=== PATIENT | male | born 1980 | race Caucasian/White ===

== ENCOUNTER 2016-05-13 20:39 | Emergency (ER) | payer OTHER ==
[~2016-05-13] VITALS: Ht 172.7 cm; Wt 72.6 kg
[2016-05-13 21:00] VITALS: BP 130/86
[2016-05-14] MEDS ORDERED: TETRACAINE HCL 0.5% OPTH(EYE) SOLN 4ML LEFTEYE ONE (00:45)
[2016-05-14] MEDS ORDERED: FLUORESCEIN SOD 1 MG TEST STRIP LEFTEYE ONE (00:45)
[2016-05-14] MEDS ORDERED: GENTAMICIN OPTH sol 0.3% 5ml LEFTEYE ONE (00:45)
== END 2016-05-14 01:19 | disposition home or self-care (01) ==
LOC: ER 20:51
DX: T15.92XA Foreign body on external eye, part unspecified, left eye, initial encounter (principal); W22.8XXA Striking against or struck by other objects, initial encounter; Y93.89 Activity, other specified; Y99.8 Other external cause status; Y92.89 Other specified places as the place of occurrence of the external cause

== ENCOUNTER 2023-09-01 06:05 | Day surgery (SDC) | payer OTHER ==
[2023-08-26 11:01] LABS: Urine Bacteria None Seen /hpf (None Seen)
[2023-08-26 11:16] LABS: Urine Blood Negative /uL (Negative); Urine Budding Yeast OCCASIONAL /hpf (None Seen); Urine Clarity Clear (Clear); Urine Color Light-Yellow (Yellow); Urine Protein, UAD Negative (Negative); Urine Specific Gravity 1.013 (1.001-1.035); Urine Urobilinogen Normal (Negative); Urine WBC <1 /hpf (0 - 3); Urine pH 6.5 (5.0-9.0)
[2023-08-26 11:18] LABS: Basophils # (auto) 0 10 ^3/uL (0-0.2); Basophils % (auto) 0.5 % (0.0-2.0); Eosinophils # (auto) 0.2 10 ^3/uL (0-0.8); Eosinophils % (auto) 3.4 % (0.0-7.0); Hematocrit 49.6 % (41.0-53.0); Hemoglobin 17.6 g/dL (13.5-17.5); Lymphocytes # (auto) 1.9 10 ^3/uL (0.4-5.4); Lymphocytes % (auto) 30.3 % (10.0-50.0); Mean Corpuscular Hemoglobin 32.5 pg (28.0-32.0); Mean Corpuscular Hgb Conc. 35.5 g/dL (32.0-36.0); Mean Corpuscular Volume 91.5 fL (80.0-100.0); Monocytes # (auto) 0.7 10 ^3/uL (0-1.3); Monocytes % (auto) 10.8 % (0.0-12.0); Neutrophils # (auto) 3.4 10 ^3/uL (1.6-8.6); Nucleated Red Blood Cells % 0.7 %; Red Blood Cells 5.42 10^6/uL (4.5-5.90); Red Cell Distribution Width 13.6 % (11.8-14.3); White Blood Cell 6.2 10^3/uL (4.4-10.8)
[2023-08-26 11:30] LABS: INR 1.03 (0.9-1.15); Partial Thromboplastin Time 28.2 SEC (24.5-34.5); Prothrombin Time 10.9 sec (9.3-11.8)
[2023-08-26 11:36] LABS: Alanine Aminotransferase 28 U/L (7-40); Albumin 4.7 g/dL (3.2-4.8); Alkaline Phosphatase 71 U/L (46-116); Anion Gap 1 (5-15); Aspartate Aminotransferase 12 U/L (13-40); BUN/Creatinine Ratio 11.5 (10.0-20.0); Bilirubin, Total 0.9 mg/dL (0.2-1.0); Blood Urea Nitrogen 13 mg/dL (9-23); Calcium 10.1 mg/dL (8.5-10.1); Carbon Dioxide 31 mmol/L (20-30); Chloride 105 mmol/L (98-107); Glucose 95 mg/dL (74-106); Sodium 137 mmol/L (136-145); Total Protein 7.3 g/dL (5.7-8.2)
[2023-08-26 14:01] LABS: Potassium 5.7 mmol/L (3.5-5.1)
[2023-08-29 11:03] LABS: Alanine Aminotransferase 38 U/L (7-40); Alkaline Phosphatase 69 U/L (46-116); Anion Gap 6 (5-15); Aspartate Aminotransferase 17 U/L (13-40); BUN/Creatinine Ratio 12.6 (10.0-20.0); Bilirubin, Total 0.8 mg/dL (0.2-1.0); Blood Urea Nitrogen 13 mg/dL (9-23); Calcium 9.6 mg/dL (8.5-10.1); Carbon Dioxide 26 mmol/L (20-30); Chloride 105 mmol/L (98-107); Glucose 93 mg/dL (74-106); Sodium 137 mmol/L (136-145); Total Protein 6.9 g/dL (5.7-8.2)
[2023-08-29 11:28] LABS: Albumin 4.6 g/dL (3.2-4.8)
[~2023-09-01] VITALS: Ht 172.7 cm; Wt 77.6 kg
[2023-09-01] MEDS ORDERED: ceFAZolin 2 GM/D5W50ml 50 ML IV ONE (06:38)
[2023-09-01] MEDS ORDERED: EPINEPHrine HCL 1 MG/1 ML AMP ONE (07:11)
[2023-09-01] MEDS ORDERED: BUPIVACAINE HCL 50 ML ONE (07:11)
[2023-09-01] MEDS ORDERED: PROPOFOL 10 MG/ML 20 ML IV ONE (07:39)
[2023-09-01] MEDS ORDERED: LIDOCAINE 1% INJ PF 5ML AMP ONE (07:39)
[2023-09-01] MEDS ORDERED: ONDANSETRON HCL 4 MG/2 ML VIAL ONE (07:39)
[2023-09-01] MEDS ORDERED: fentaNYL CITRATE 5 ML ONE (07:43)
[2023-09-01] MEDS ORDERED: MIDAZOLAM HCL 2MG/2ML 2ml VIAL (1mg/ml) ONE (07:43)
[2023-09-01] MEDS: BUPIVACAINE 0.5% MPF INJ 30ML SDV IJ ONE (08:30)
[2023-09-01] MEDS ORDERED: ONDANSETRON HCL 4 MG/2 ML VIAL IV ONE (08:45)
[2023-09-01] MEDS ORDERED: HYDROmorphone HCL 2 MG/ML VL/or syr IV PRN ×2 (08:45)
[2023-09-01 08:59] VITALS: PULSE 62; RESP 9; O2SAT 100
[2023-09-01 09:00] VITALS: TEMP 97.5
[2023-09-01 09:30] VITALS: BP 124/82; PULSE 49; RESP 11
== END 2023-09-01 09:45 | disposition home or self-care (01) ==
LOC: SUR 06:05
PROVIDERS: ATTEND Orthopaedic Surgery
DX: S83.241A Other tear of medial meniscus, current injury, right knee, initial encounter (principal); S83.511A Sprain of anterior cruciate ligament of right knee, initial encounter; M25.861 Other specified joint disorders, right knee; M23.51 Chronic instability of knee, right knee; G89.29 Other chronic pain; Z79.899 Other long term (current) drug therapy; Z98.890 Other specified postprocedural states; X58.XXXA Exposure to other specified factors, initial encounter; Y93.89 Activity, other specified; Y92.89 Other specified places as the place of occurrence of the external cause; Y99.8 Other external cause status
CPT/HCPCS: 29882; 29888; 36415; 80053; 81001; 85025; 85610; 85730; C1713; J0171; J0690; J2250; J2405; J2704; J3010; J3490

== ENCOUNTER 2025-02-14 06:05 | Day surgery (SDC) | payer BC ==
[~2025-02-14] VITALS: Ht 172.7 cm; Wt 73.5 kg
[~2025-02-14 06:05] MED LIST: IBUP100S11 GT
[2025-02-14] MEDS ORDERED: ceFAZolin 2 GM/D5W50ml 50 ML IV ONE (06:35)
[2025-02-14] MEDS ORDERED: BUPIVACAINE HCL 50 ML ONE (06:43)
[2025-02-14] MEDS ORDERED: BUPIVACAINE 0.25% INJ 50ML VIAL ONE ×2 (06:43→07:06)
[2025-02-14] MEDS ORDERED: PROPOFOL 10 MG/ML 20 ML IV ONE (06:50)
[2025-02-14] MEDS ORDERED: KETOROLAC TROMETH 30 MG/ML 1ML VIAL ONE (06:50)
[2025-02-14] MEDS ORDERED: GLYCOPYRROLATE 0.2 MG/ML 1ML VIAL ONE (06:50)
[2025-02-14] MEDS ORDERED: LIDOCAINE 2% (LOCAL ANESTH.) PF 5ml SDV ONE (06:50)
[2025-02-14] MEDS ORDERED: ONDANSETRON HCL 4 MG/2 ML VIAL ONE (06:50)
[2025-02-14] MEDS ORDERED: fentaNYL CITRATE 100 MCG/2 ML VL ONE (06:51)
[2025-02-14] MEDS ORDERED: KETAMINE 50mg/ML 1ml syringe ONE (06:51)
[2025-02-14] MEDS: ACETAMINOPHEN IV 1000 MG/100ML (10MG/ML) IV ONE (07:00)
[2025-02-14] MEDS: GABAPENTIN 300 MG CAP PO ONE (07:00)
[2025-02-14] MEDS: CELECOXIB 100 MG CAP PO ONE (07:00)
[2025-02-14] MEDS ORDERED: MINERAL OIL TOPICAL 10ml TOP ONE (07:02)
[2025-02-14] MEDS ORDERED: LIDOCAINE W/ EPINEPHRINE 1% 20ML VIAL ONE (07:07)
[2025-02-14] MEDS ORDERED: ROPIVACAINE 0.5% (5MG/ML) 20ML AMPULE IJ ONE (07:16)
[2025-02-14 08:05] VITALS: PULSE 55; RESP 12; O2SAT 99
--- NOTE | 2025-02-14 08:10 | DVHOP2 ---
Discharge Orders Discharge Orders DISCHARGE WHEN CRITERIA MET DISCHARGE WHEN CRITERIA MET. Operative Rep- Outpatient Operative Report PRE-OP DIAGNOSIS: Right knee medial meniscus tear Right knee synovitis POST-OP DIAGNOSIS: Same [place] protocol followed: Yes ESTIMATED BLOOD LOSS: Minimal PROCEDURE: Right knee arthroscopic medial meniscus repair Right knee arthroscopic partial lateral meniscectomy Right knee arthroscopic microfracture lateral femoral condyle Right knee aggressive synovectomy intermittent 2 component chondroplasty SURGEON/FLORICULTURE TEACHER: Pamela PATEL ANESTHESIA: SWING SAW OPERATOR INFORMED CONSENT: Informed Consent: Discussed all inherent risks, complications, and alternatives treatments with the patient. Patient has agreed to proceed with the procedure. I have reviewed all pre-operative assessments including Labs, EKGs, and radiographic images that has been performed. Patient is an appropriate candidate for the outpatient surgical center procedure. The patient is educated on the risks and benefits of surgical and nonsurgical treatment of the right lower extremity the patient understood the risks and benefits of surgical nonsurgical treatment of the right lower extremity the patient understood the risks and benefits of surgical and nonsurgical treatment of the right lower extremity based on these parameters the patient understood the risks and benefits and opted for surgical treatment The patient was seen in the preoperative holding of the right lower extremity was marked the patient was brought to operative suite general anesthesia was then induced time-out was hospital protocol the right lower extremity was prepped and draped in the standard fashion Ancef was given for infection prophylaxis the anteromedial anterolateral portal were then made the patellofemoral joint was then visualized there were no loose bodies noted in the medial and lateral gutter the medial femoral condyle medial tibial plateau had grade 1 softening of the medial tibial plateau plateau had grade 1 softening medial femoral condyle grade 1 softening the patient had a complex tear of the posterior horn of the medial meniscus with a rasp fracture followed by partial meniscectomy followed by 2-0 all inside jugular 6 sutures were medial meniscus repair to stabilize the medial meniscus to prevent a medial meniscus resection with the risk of the having a subtotal meniscectomy based on the tear of the pattern therefore the repair of the meniscus based on the red-white zone once I was then done on 9 microfracture of the endocrinologic and lateral femoral condyle 3 microfracture picks were Medicine, bleeding once I was then done on the ACL PCL were grossly intact there were no laxity noted on the ACL once it was then done the lateral femoral condyle lateral tibial plateau cartilage was intact the patient had a radial tear of the lateral meniscus with partial lateral meniscectomy was done with a an RF Wand and a shaver once I was then completed the portal sites were then closed with 2-0 Monocryl sterile dressing was then applied the patient will be weight-bearing as tolerated in extension only nonweightbearing from 0-90 degrees PT OT out of bed daily follow up in 2 w eeks' time the portal sites were closed with 2-0 Monocryl MONSE HARTMANN MD Feb 14, 2025 08:10
[2025-02-14] MEDS ORDERED: fentaNYL CITRATE 100 MCG/2 ML VL IV PRN (08:15)
[2025-02-14] MEDS ORDERED: FLUMAZENIL 0.1 MG/ML INJ 10ML MDV IV PRN (08:15)
[2025-02-14] MEDS ORDERED: hydrALAZINE HCL 20 MG/ML VL IV PRN (08:15)
[2025-02-14] MEDS ORDERED: NALOXONE HCL 0.4 MG/ML VIAL IV PRN (08:15)
[2025-02-14] MEDS ORDERED: ONDANSETRON HCL 4 MG/2 ML VIAL IV PRN (08:15)
[2025-02-14] MEDS: HYDROmorphone HCL 2 MG/ML VL/or syr IV PRN (08:27)
[2025-02-14 09:00] VITALS: BP 122/87; PULSE 54; RESP 12; O2SAT 96
== END 2025-02-14 09:04 | disposition home or self-care (01) ==
LOC: SUR 06:05
PROVIDERS: ATTEND Orthopaedic Surgery
DX: S83.231A Complex tear of medial meniscus, current injury, right knee, initial encounter (principal); S83.281A Other tear of lateral meniscus, current injury, right knee, initial encounter; M65.861 Other synovitis and tenosynovitis, right lower leg; G89.18 Other acute postprocedural pain; Z79.899 Other long term (current) drug therapy; Z98.890 Other specified postprocedural states; X58.XXXA Exposure to other specified factors, initial encounter; Y93.89 Activity, other specified; Y92.89 Other specified places as the place of occurrence of the external cause; Y99.8 Other external cause status
CPT/HCPCS: 29879; 29881; 29882; 64450; C1713; J0169; J0690; J1100; J1171; J1885; J2003; J2405; J2704; J2795; J3490; J0131